=== PATIENT | female | born 1960 | race Caucasian/White ===

== ENCOUNTER 2019-09-21 10:26 | Emergency (ER) | payer MEDICARE ==
[2019-09-21] MEDS ORDERED: NITROGLYCERIN 0.4MG SL TABLET #25 BTL SL PRN (10:55)
[2019-09-21] MEDS ORDERED: ASPIRIN 81 MG CHEWABLE TABLET PO ONE (10:55)
[2019-09-21 11:00] LABS: ABSOLUTE NEUTROPHIL COUNT 7.56; BASO % 0.3 % (0-6); EOS % 0.5 % (0-6); GRAN % 63.8 % (47-80); HEMATOCRIT 39.5 % (35.0-47.0); HEMOGLOBIN 12.9 gm/dl (11.6-16.0); LYMPH % 29.4 % (16-45); MEAN CORPUSCULAR HEMOGLOBIN 30.7 pg (27-33); MEAN CORPUSCULAR HGB CONC 32.7 g/dl (32-36); MEAN PLATELET VOLUME 10.2 fl (7.4-10.4); PLATELET COUNT 288 K/uL (130-400); RED CELL DISTRIBUTION WIDTH 13.9 % (11.5-14.5); WHITE BLOOD COUNT W/O DIFF 11.9 K/uL (4.2-12.2)
[2019-09-21 11:05] LABS: BLOOD UREA NITROGEN 21 mg/dL (8-23); CREATININE 0.7 mg/dL (0.5-0.9); EST GLOMERULAR FILTRATION RATE > 60 mL/min; TOTAL PROTEIN 7.7 g/dL (6.6-8.7)
[2019-09-21 11:07] LABS: GLUCOSE,RANDOM 142 mg/dL (74-109)
[2019-09-21 11:10] LABS: ALB/GLOB RATIO 1.2 (1.1-1.8); ALBUMIN 4.2 g/dL (4.0-5.0); ALKALINE PHOSPHATASE 95 U/L (35-104); ALT/SGPT 15 U/L (<33); AST/SGOT 19 U/L (10.0-35.0); CREATINE PHOSPHOKINASE 62 U/L (26-192)
[2019-09-21 11:14] LABS: CKMB 1.3 ng/mL (<3.77)
[2019-09-21 11:15] LABS: NTpro B-NATRIURETIC PEPTIDE 82.31 pg/mL (<125)
[2019-09-21] MEDS ORDERED: MORPHINE SULFATE 5 MG/ML VIAL IVP ONE ×2 (11:18→13:10)
--- NOTE | 2019-09-21 12:30 | Emergency Department Record ---
History of Present Illness - General Chief Complaint: Chest Pain Stated Complaint: CHEST PAIN Time Seen by Provider: 09/21/19 10:38 Source: Patient, RN notes reviewed, Old records reviewed Mode of Arrival: Ambulatory Limitations: No limitations - History of Present Illness Initial Comments: pt has cp that started 2 hrs ago. it is sharp and worsens with inspiration. it is midsternal. it goes down into her abdomen and she has epigastric pain as well. she has hx of gastric sleeve. MD Complaint: Chest pain Onset/Timin -: Hour(s) Onset: Awoke with symptoms Pain Location: Left chest, Right chest Pain Radiation: Back, Neck, Abdomen Severity: Severe Severity scale (1-10): 9 Quality: Sharp Consistency: Constant Improves With: Nothing Worsens With: Inspiration, Palpation Treatments Prior to Arrival: None - Related Data Home Medications Medication Instructions Recorded Confirmed Last Taken Citalopram Hydrobromide [Celexa] 40 mg PO DAILY 09/21/19 09/21/19 09/21/19 Cyclobenzaprine HCl [Flexeril] 10 mg PO QHS 09/21/19 09/21/19 09/20/19 Famotidine 20 mg PO DAILY 09/21/19 09/21/19 09/21/19 Gabapentin 900 mg PO BID 09/21/19 09/21/19 09/21/19 Hydrochlorothiazide 12.5 mg PO DAILY 09/21/19 09/21/19 09/21/19 Hydrocodone/Acetaminophen 1 tab PO ASDIR 09/21/19 09/21/19 Unknown [Hydrocodone-Acetamin 5-325 mg] Metoprolol Tartrate [Lopressor] 50 mg PO DAILY 09/21/19 09/21/19 09/21/19 Allergies Allergy/AdvReac Type Severity Reaction Status Date / Time Sulfa (Sulfonamide Allergy ANAPHYLAXIS Verified 09/21/19 10:34 Antibiotics) Travel/Exposure Screening - Travel/Exposure Within Last 30 Days Have you traveled within the last 30 days?: No - Travel/Exposure Within Last Year Have you traveled outside the [place] in the last year?: No - Additonal Travel/Exposure Details Have you been exposed to anyone with a communicable illness?: No - Travel Symptoms Symptom Screening: None Review of Systems Constitutional: Reports: Weight change. Denies: Chills, Fever, Night sweats, Weakness Eyes: Denies: Eye discharge, Eye pain, Photophobia ENT: Denies: Congestion, Dental pain, Ear pain, Epistaxis, Hearing loss, Throat pain Respiratory: Reports: Dyspnea. Denies: Cough, Hemoptysis, Stridor, Wheezes Cardiovascular: Reports: Chest pain, Dyspnea on exertion, Orthopnea, Paroxysmal nocturnal dyspnea. Denies: Arrhythmia, Edema, Murmurs, Palpitations, Rheumatic Fever, Syncope Endocrine: Reports: Fatigue. Denies: Heat or cold intolerance, Polydipsia, Polyuria Gastrointestinal: Reports: Abdominal pain, Nausea. Denies: Constipation, Diarrhea, Hematemesis, Hematochezia, Melena, Vomiting Genitourinary: Denies: Abnormal menses, Discharge, Dyspareunia, Dysuria, Frequency, Hematuria, Incontinence, Retention, Urgency Musculoskeletal: Reports: Arthralgia. Denies: Back pain, Gout, Joint swelling Skin: Denies: Bruising, Change in color, Change in hair/nails, Lesions Neurological: Denies: Abnormal gait, Confusion, Headache, Numbness, Paresthesias, Seizure, Tingling, Tremors Psychiatric: Denies: Anxiety, Auditory hallucinations, Homicidal thoughts, Suicidal thoughts Hematological/Lymphatic: Denies: Anemia, Blood Clots, Easy bleeding Past Medical History - SOCIAL HISTORY Smoking Status: Never smoker Alcohol Use: None Drug Use: None - RESPIRATORY Hx Respiratory Disorders: No - CARDIOVASCULAR Hx Cardio Disorders: No - NEURO Hx Neuro Disorders: No - GI Hx GI Disorders: Yes Hx Reflux: Yes - Hx Genitourinary Disorders: No - ENDOCRINE Hx Endocrine Disorders: No - MUSCULOSKELETAL Hx Musculoskeletal Disorders: Yes - PSYCH Hx Psych Problems: Yes Hx Anxiety: Yes - HEMATOLOGY/ONCOLOGY Hx Hematology/Oncology Disorders: No Family Medical History Any Significant Family History?: No Physical Exam - General General Appearance: Alert, Oriented x3, Cooperative, Moderate distress - Head Head exam: Normal inspection - Eye Eye exam: Normal appearance, PERRL, EOMI Pupils: Normal accommodation - ENT ENT exam: Normal exam, Mucous membranes moist, Normal external ear exam, Normal orophraynx Ear exam: Normal external inspection. negative: External canal tenderness Nasal Exam: Normal inspection. negative: Discharge, Sinus tenderness Mouth exam: Normal external inspection, Tongue normal Teeth exam: Normal inspection. negative: Dental caries Throat exam: Normal inspection. negative: Tonsillar erythema, Tonsillar exudate - Neck Neck exam: Normal inspection, Full ROM. negative: Tenderness - Respiratory Respiratory exam: Normal lung sounds bilaterally. negative: Respiratory distress - Cardiovascular Cardiovascular Exam: Regular rate, Normal rhythm, Normal heart sounds - GI/Abdominal GI/Abdominal exam: Soft, Normal bowel sounds, Guarding, Tenderness - Rectal Rectal exam: Deferred - exam: Deferred - Extremities Extremities exam: Normal inspection, Full ROM, Normal capillary refill. negative: Tenderness - Back Back exam: Reports: Normal inspection, Full ROM. Denies: Muscle spasm, Rash noted, Tenderness - Neurological Neurological exam: Alert, CN II-XII intact, Normal gait, Oriented X3 - Psychiatric Psychiatric exam: Normal affect, Normal mood - Skin Skin exam: Dry, Intact, Normal color, Warm Course Vital Signs 09/21/19 10:39 Temperature 98 F Pulse Rate 82 Respiratory 16 Rate Blood Pressure 166/80 Pulse Ox 97 - Reevaluation(s) Reevaluation #1: 09/21/19 12:30 ntg did not help. morphine did help 09/21/19 15:[address] abd shows intussusception. d/w dr acosta who accepts pt 09/21/19 15:27 09/21/19 15:28 Reevaluation #2: 09/21/19 15:30 pt conts to be in pain when morphine wears off Medical Decision Making - Lab Data Result diagrams: 09/21/19 Unknown 09/21/19 Unknown Lab Results 09/21/19 09/21/19 Range/Units Unknown Unknown WBC 11.9 (4.2-12.2) K/uL RBC 4.20 (3.80-5.40) M/uL Hgb 12.9 (11.6-16.0) gm/dl Hct 39.5 (35.0-47.0) % MCV 94.0 (81-97) fl MCH 30.7 (27-33) pg MCHC 32.7 (32-36) g/dl RDW 13.9 (11.5-14.5) % Plt Count 288 (130-400) K/uL MPV 10.2 (7.4-10.4) fl Gran % 63.8 (47-80) % Lymphocytes % 29.4 (16-45) % Monocytes % 6.0 (0-9) % Eosinophils % 0.5 (0-6) % Basophils % 0.3 (0-6) % Absolute Neutrophils 7.56 Sodium 138 (136-145) mmol/L Potassium 4.3 (3.4-4.5) mmol/L Chloride 101 (98-107) mmol/L Carbon Dioxide 24.0 (22-29) mmol/L Anion Gap 13.0 (7-16) BUN 21 (8-23) mg/dL Creatinine 0.7 (0.5-0.9) mg/dL Estimated GFR > 60 mL/min Random Glucose 142 H (74-109) mg/dL Calcium 9.2 (8.8-10.2) mg/dL Total Bilirubin 0.30 (0.2-1.0) mg/dL AST 19 (10.0-35.0) U/L ALT 15 (<33) U/L Alkaline Phosphatase 95 (35-104) U/L Creatine Kinase 62 (26-192) U/L CK-MB (CK-2) 1.3 (<3.77) ng/mL Troponin T < 0.010 (0-0.010) ng/mL NT-Pro-B Natriuret Pep 82.31 (<125) pg/mL Total Protein 7.7 (6.6-8.7) g/dL Albumin 4.2 (4.0-5.0) g/dL Globulin 3.5 (1.4-4.8) gm/dL Albumin/Globulin Ratio 1.2 (1.1-1.8) Disposition Disposition: Transfer Clinical Impression: Intussusception Disposition: Acute Care Hospital Transfer Transfer To: [facility] Reason For Transfer: needs surgeon Accepting Physician: dr acosta Time Discussed w/Accepting Physician: 15:30 Quality - Quality Measures Quality Measures: N/A - Blood Pressure Screening Does Patient Have Any of the Following: No Blood Pressure Classification: Pre-Hypertensive BP Reading Systolic Measurement: 166 Diastolic Measurement: 80 Screening for High Blood Pressure: < Pre-Hypertensive BP, F/U Documented > [G8950] Pre-Hypertensive Follow-up Interventions: Follow-up with rescreen every year.
--- NOTE | 2019-09-21 13:09 | CT ANGIOGRAM REPORT ---
EXAMINATION: CT Angiography of the Thorax EXAM DATE: 09/21/2019 12:25 PM TECHNIQUE: Standard protocol CT angiogram images were obtained through the chest following the admini stration of intravenous contrast. Coronal and sagittal MIP 3-D reformations were performed. IV Contrast: The amount and type of contrast are recorded in the medical record. INDICATION: Chest pain. COMPARISON: None ENCOUNTER: Not applicable FINDINGS: Pulmonary Artery: No pulmonary embolism is present. Aorta: No thoracic aortic aneurysm or dissection is present. Right Heart Strain: None. Heart : There is no pericardial effusion. Vicki and Mediastinum: Mildly enlarged right hilar lymph node measuring 1.1 cm short axis. All other l ymph nodes less than 1 cm. Lung Parenchyma: Moderate bibasilar dependent atelectasis. Central Airways: Normal. Pleural Effusion: None. No pneumothorax. Upper Abdomen: See separate report. Musculoskeletal and Chest Wall: Unremarkable. IMPRESSION: No PE. Mildly enlarged right hilar lymph node measuring 1.1 cm short axis. Dictated by: Cristiano Miller DO on 09/21/2019 1:03 PM. .
--- NOTE | 2019-09-21 13:24 | CT SCAN REPORT ---
EXAMINATION: CT Abdomen and Pelvis with IV Contrast EXAM DATE: 09/21/2019 12:25 PM TECHNIQUE: CT imaging of the abdomen and pelvis was performed with intravenous contrast. Coronal and sagittal images were reconstructed. IV Contrast: The amount and type of contrast are recorded in the medical record. INDICATION: Upper abdominal pain, back pain COMPARISON: None ENCOUNTER: Not applicable CT ABDOMEN AND PELVIS FINDINGS: Lung Bases: See separate report. Hepatobiliary: The liver has a normal size with a smooth surface. The hepatic and portal veins appear patent. Cholecystectomy clips present. There is mild intra and extrahepatic biliary ductal prominen ce likely on a postcholecystectomy basis. Pancreas: The pancreas is normal. Spleen: The spleen is not enlarged. Adrenals: The adrenal glands are normal. Kidneys, Ureters, & Bladder: Likely subcentimeter small cysts. There is a 1.5 cm hypodense focus whic h is of fluid attenuation at the posterolateral medial aspect of the lower pole right kidney compatib le with a cyst. Small extrarenal pelvis bilaterally. No hydroureter. Mild cystocele otherwise unrema rkable bladder. Gastrointestinal: Postsurgical suture material relates to the stomach. There is a short segment of en teroenteric intussusception in the left abdomen near an anastomotic site which appears to be nonobstr uctive. Involved small bowel measures up to 5.7 cm caliber at this mildly patulous site. The appendix is normal. The large bowel is normal. Reproductive Organs: The uterus is absent. Lymphatic System: Enhancing lymph nodes are noted anteriorly in the left upper quadrant measuring up to 1.1 cm short axis. These are seen near some sutures and near small bowel anastomotic loop in the a nterior and medial left upper quadrant. Vasculature: Normal caliber abdominal aorta. The main abdominal aortic branch vessels including the celiac, mesenteric, and renal arteries appear patent with no evidence of a stenosis. There is no evid ence for mesenteric venous thrombosis. Peritoneum: No free fluid, free air, or inflammation Abdominal Wall & Musculoskeletal: No suspicious bone lesions. Degenerative facet arthropathy right wo rse than left at the lumbosacral junction. Mild diffuse osteopenia. IMPRESSION: 1. Mildly enlarged enhancing lymph nodes in the left upper quadrant clustered near some postsurgical suture material related to stomach and enteric anastomosis. 2. Renal cysts with the largest measuring 1.5 cm on the right. 3. Short segment of nonobstructive enteroenteric intussusception (likely transient) in the left upper quadrant near an anastomosis. Patulous small bowel measures up to 5.7 cm caliber at this location. Dictated by: Cristiano Miller DO on 09/21/2019 1:08 PM. .
== END 2019-09-21 17:52 | disposition short-term general hospital (02) ==
LOC: ER 10:26
DX: K56.1 Intussusception (principal); R07.89 Other chest pain; R10.13 Epigastric pain
CPT/HCPCS: 71275; 74177; 80053; 82550; 82553; 83880; 84484; 85025; 93005; 93010; 96372; 96374; 96376; 99285